=== PATIENT | male | born 1935 | race Two or more races ===

== ENCOUNTER 2017-11-12 13:19 | Outpatient (CLI) | payer MEDICARE, MEDICAID | END 2017-11-12 23:59 | disposition home health service (06) | LOC: WOU 13:19 | PROVIDERS: ATTEND Podiatrist Foot & Ankle Surgery | DX: E11.52 Type 2 diabetes mellitus with diabetic peripheral angiopathy with gangrene (principal); E11.42 Type 2 diabetes mellitus with diabetic polyneuropathy; I25.10 Atherosclerotic heart disease of native coronary artery without angina pectoris; Z98.61 Coronary angioplasty status; Z95.1 Presence of aortocoronary bypass graft; F17.211 Nicotine dependence, cigarettes, in remission; Z83.3 Family history of diabetes mellitus | CPT/HCPCS: 82962; G0463; A6402 ==

== ENCOUNTER 2017-11-23 08:20 | Outpatient (CLI) | payer MEDICARE, MEDICAID ==
[2017-12-03] MEDS ORDERED: ASCO500T9 PO (16:02)
[2017-12-03] MEDS ORDERED: MULT-24 PO (16:02)
== END 2017-11-23 23:59 | disposition home health service (06) ==
LOC: WOU 08:20
PROVIDERS: ATTEND Podiatrist Foot & Ankle Surgery
DX: E11.52 Type 2 diabetes mellitus with diabetic peripheral angiopathy with gangrene (principal); E11.621 Type 2 diabetes mellitus with foot ulcer; E11.42 Type 2 diabetes mellitus with diabetic polyneuropathy; I96 Gangrene, not elsewhere classified; L97.522 Non-pressure chronic ulcer of other part of left foot with fat layer exposed; I80.9 Phlebitis and thrombophlebitis of unspecified site; R60.0 Localized edema; Z87.01 Personal history of pneumonia (recurrent)
CPT/HCPCS: A6402; G0463

== ENCOUNTER 2017-11-24 13:00 | Outpatient (CLI) | payer MEDICARE, MEDICAID | END 2017-11-24 23:59 | disposition home health service (06) | LOC: WOU 13:00 | PROVIDERS: ATTEND Specialist | DX: Z01.818 Encounter for other preprocedural examination (principal); E11.52 Type 2 diabetes mellitus with diabetic peripheral angiopathy with gangrene; E11.621 Type 2 diabetes mellitus with foot ulcer; L97.522 Non-pressure chronic ulcer of other part of left foot with fat layer exposed; Z87.891 Personal history of nicotine dependence; J44.9 Chronic obstructive pulmonary disease, unspecified; Z95.1 Presence of aortocoronary bypass graft; Z98.61 Coronary angioplasty status; Z79.4 Long term (current) use of insulin; Z79.899 Other long term (current) drug therapy; I50.9 Heart failure, unspecified; Z79.52 Long term (current) use of systemic steroids | CPT/HCPCS: A6402; G0463 ==

== ENCOUNTER 2017-11-30 12:00 | Outpatient (CLI) | payer MEDICARE, MEDICAID ==
[~2017-11-30 12:00] MED LIST: GABAPENTIN 300 MG CAPSULE PO ONE
[2017-11-30] MEDS ORDERED: BUDE10.2 INH (18:44)
[2017-11-30] MEDS ORDERED: METO25TA6 PO (18:44)
[2017-11-30] MEDS ORDERED: ATOR20TA PO (18:44)
[2017-11-30] MEDS ORDERED: INSU100I4 SQ (18:44)
[2017-11-30] MEDS ORDERED: INSU100I30 SQ (18:44)
[2017-11-30] MEDS ORDERED: NITR1PAT5 TD (18:44)
[2017-11-30] MEDS ORDERED: VITA1TAB20 PO (18:44)
[2017-11-30] MEDS ORDERED: ALBU2.5V13 IH (18:44)
[2017-11-30] MEDS ORDERED: DABI75CA3 PO (18:44)
[2017-11-30] MEDS ORDERED: PRED5TAB PO (18:44)
[2017-11-30] MEDS ORDERED: TAMS0.4C34 PO (18:44)
[2017-11-30] MEDS ORDERED: ASPI-1169 PO (18:44)
[2017-11-30] MEDS ORDERED: INSU100I24 SQ (18:44)
[2017-11-30] MEDS ORDERED: FURO40TA5 PO (18:44)
[2017-11-30] MEDS ORDERED: MONT10TA22 PO (18:44)
[2017-12-01] MEDS ORDERED: INSU100V11 SQ ×2 (19:34)
[2017-12-03] MEDS ORDERED: ASCO500T9 PO (16:02)
[2017-12-03] MEDS ORDERED: MULT-24 PO (16:02)
== END 2017-11-30 23:59 | disposition home health service (06) ==
LOC: WOU 12:00
PROVIDERS: ATTEND Specialist
DX: I96 Gangrene, not elsewhere classified (principal); E11.621 Type 2 diabetes mellitus with foot ulcer; E11.52 Type 2 diabetes mellitus with diabetic peripheral angiopathy with gangrene; L97.522 Non-pressure chronic ulcer of other part of left foot with fat layer exposed; L03.116 Cellulitis of left lower limb; I77.1 Stricture of artery; Z87.828 Personal history of other (healed) physical injury and trauma; Z79.4 Long term (current) use of insulin
CPT/HCPCS: A6402; G0463

== ENCOUNTER 2017-11-30 14:29 | Inpatient (IN) | payer MEDICARE, MEDICAID ==
[~2017-11-30] VITALS: Ht 165.1 cm; Wt 67.6 kg
--- NOTE | 2017-11-30 14:45 | NUR ---
MS/supervisor elementary education New admission from wound center with foot wounds. Partial orders wrote by Dr Toro and carried out. Patient fully admitted, dressings to both feet removed and pictures taken.
[2017-11-30 16:00] VITALS: BP 117/66
[2017-11-30] MEDS ORDERED: Z GUARD REMEDY 2 OZ OINT TP PRN (16:00)
[2017-11-30] MEDS ORDERED: ONDANSETRON HCL/PF 4 MG/2 ML VIAL IVP PRN (16:00)
[2017-11-30] MEDS ORDERED: MAG HYDROX/AL HYDROX/SIMETH 30 ML UDC PO PRN (16:00)
[2017-11-30] MEDS ORDERED: MAGNESIUM HYDROXIDE 30 ML UDC PO PRN (16:00)
--- NOTE | 2017-11-30 16:20 | NUR ---
MS/RN MRSA swab MRSA swab collected and sent to lab.
[2017-11-30] MEDS ORDERED: FEE PK DOSING 1 MIN EA MC ONE (17:39)
[2017-11-30] MEDS: HYDROCODONE/APAP 5/325MG 1 EACH TABLET PO PRN (17:47)
--- NOTE | 2017-11-30 18:15 | NUR ---
MS/RN S/B Dr Perez Seen by Dr Perez - admitting orders wrote and carried out.
[2017-11-30] MEDS: PIPERACILLIN /TAZOBACTAM 3.375 G in IV D5W 50 ML IV SCH ×2 (18:16→23:19)
[2017-11-30] MEDS ORDERED: METO25TA6 PO (18:44)
[2017-11-30] MEDS ORDERED: MONT10TA22 PO (18:44)
[2017-11-30] MEDS ORDERED: PRED5TAB PO (18:44)
[2017-11-30] MEDS ORDERED: TAMS0.4C34 PO (18:44)
[2017-11-30] MEDS ORDERED: VITA1TAB20 PO (18:44)
[2017-11-30] MEDS ORDERED: FURO40TA5 PO (18:44)
[2017-11-30] MEDS ORDERED: BUDE10.2 INH (18:44)
[2017-11-30] MEDS ORDERED: INSU100I24 SQ (18:44)
[2017-11-30] MEDS ORDERED: ATOR20TA PO (18:44)
[2017-11-30] MEDS ORDERED: ALBU2.5V13 IH (18:44)
[2017-11-30] MEDS ORDERED: DABI75CA3 PO (18:44)
[2017-11-30] MEDS ORDERED: INSU100I30 SQ (18:44)
[2017-11-30] MEDS ORDERED: ASPI-1169 PO (18:44)
[2017-11-30] MEDS ORDERED: INSU100I4 SQ (18:44)
[2017-11-30] MEDS ORDERED: NITR1PAT5 TD (18:44)
--- NOTE | 2017-11-30 18:53 | NUR ---
MS/RN Medications Home medications entered into computer by [facility] ? nurse.
[2017-11-30] MEDS ORDERED: VANCOMYCIN 1 GM in IV D5W 250 ML IV ONE (19:00)
--- NOTE | 2017-11-30 19:15 | NUR ---
RN OPENING NOTES PT AWAKE AND RESTING IN BED. NO COMPLAINTS OF PAIN AT THIS TIME. PT HAS RIGHT WRIST #20 IV, INTACT AND PATENT. NO COMPLAINTS OF SOB. SAFETY PRECAUTIONS IN PLACE, BED IN LOW LOCKED POSITION, X2 SIDE RAILS UP, AND CALL LIGHT WITHIN REACH. WILL CONTINUE TO MONITOR.
[2017-11-30 20:00] VITALS: BP 95/44
--- NOTE | 2017-11-30 20:30 | NUR ---
RN NOTES PT REQUESTED PRN TYLENOL 650MG FOR LEFT ANKLE PAIN, AND RIGHT TOE PAIN. WILL ADMINISTER AND CONTINUE TO MONITOR.
[2017-11-30] MEDS: ACETAMINOPHEN 325 MG TABLET PO PRN (20:34)
[2017-11-30] MEDS: ZOLPIDEM TARTRATE 5 MG TABLET PO PRN (23:19)
[2017-12-01] MEDS: PIPERACILLIN /TAZOBACTAM 3.375 G in IV D5W 50 ML IV SCH ×3 (05:35→17:46)
[2017-12-01] MEDS: HYDROCODONE/APAP 5/325MG 1 EACH TABLET PO PRN ×4 (05:35→18:39)
--- NOTE | 2017-12-01 06:37 | NUR ---
RN CLOSING NOTES PT RESTING IN BED. NO COMPLAINTS OF SOB AT THIS TIME. EXPLAINED TO THE PT THE IMPORTANCE OF PAIN MANAGEMENT. PT AWARE OF PRN MEDICATIONS AVAILABLE FOR PAIN. PT HAS A RIGHT WRIST #20 IV, INTACT AND PATENT. PT SLEPT WELL THROUGHOUT THE NIGHT. SAFETY PRECAUTIONS IN PLACE, BED IN LOW, LOCKED POSITION, X2 SIDE RAILS UP. CALL LIGHT WITHIN REACH, WILL ENDORSE TO DAY SHIFT NURSE FOR CONTINUITY OF CARE.
[2017-12-01 06:41] LABS: BASOPHILS % (AUTO) 0.2 % (0.0-2.0); EOSINOPHILS # (AUTO) 0.3 /CMM (0.0-0.7); EOSINOPHILS % (AUTO) 2.7 % (0.0-6.0); HEMATOCRIT 34 % (39-51); HEMOGLOBIN 11.7 g/dL (13.5-17.5); LYMPHOCYTES # (AUTO) 0.6 /CMM (0.8-4.8); MEAN CORPUSCULAR HEMOGLOBIN 29 PG (26.0-33.0); MEAN CORPUSCULAR HGB CONC 35 g/dl (31.0-36.0); MEAN CORPUSCULAR VOLUME 83 fL (80-96); MONOCYTES # (AUTO) 0.7 /CMM (0.1-1.30); MONOCYTES % (AUTO) 5.9 % (2.0-12.0); NEUTROPHILS # (AUTO) 10.1 /CMM (1.8-8.9); NEUTROPHILS % (AUTO) 86.2 % (43.0-81.0); PLATELET COUNT (AUTO) 243 /CMM (150-450); RED BLOOD CELL COUNT(AUTO) 4.04 MIL/uL (4.5-6.0); WHITE BLOOD COUNT (AUTO) 11.8 K/uL (4.3-11.0)
[2017-12-01 06:44] LABS: CHOLESTEROL 115 mg/dL (<200); HDL CHOLESTEROL 58 mg/dL (40-60); LDL 58 mg/dL (0-99); TRIGLYCERIDES 98 mg/dL (30-150)
[2017-12-01 07:02] LABS: CALCIUM, SERUM 8.6 mg/dL (8.5-10.1); CARBON DIOXIDE 30 mmol/L (21-32); CHLORIDE 103 mmol/L (98-107); CREATININE 1.4 mg/dL (0.6-1.3); GLUCOSE 114 mg/dL (74-106); PHOSPHORUS 3.3 mg/dL (2.5-4.9); POTASSIUM 3.6 mmol/L (3.5-5.1); SODIUM SERUM 141 mmol/L (136-145); UREA NITROGEN, BLOOD 23 mg/dL (7-18)
--- NOTE | 2017-12-01 07:30 | NUR ---
DR. CASAS IN AND WD CARE DONE TO BOTH FEET.HEP LOCK IN PLACE.
[2017-12-01 08:00] VITALS: BP 109/54
--- NOTE | 2017-12-01 09:32 | NUR ---
WOUND CARE CONSULT: PT PRESENTS WITH LEFT ARM SMALL SCAB AND BILATERAL TOES WITH DRY GANGRENE, PRESENT ON ADMISSION. PT EXAMINED BY PODIATRY TEAM. DEFER TO PODIATRY TEAM FOR LOWER EXTREMITIES. PT IS CONTINENT AND AMBULATORY. CURRENT NOLBERTO SCORE IS 17. WILL SEE PRN. DISCUSSED SKIN PROTECTION WITH NURSING STAFF. MD IN AGREEMENT WITH PLAN OF CARE.
--- NOTE | 2017-12-01 10:30 | NUR ---
DR. SCOTT IN AND ORDERS GIVEN.RN REQUESTING SLIDING SCALE BE ORDERED.NO ORDERS FOR SL SCALE.
[2017-12-01] MEDS: BLOOD SUGAR DIAGNOSTIC 1 EACH STRIP IN SCH ×3 (12:39→21:18)
[2017-12-01 16:00] VITALS: BP 114/54
[2017-12-01] MEDS: FLUTICASONE/VILANTEROL 1 EACH BLST.W.DEV IH SCH (16:55)
[2017-12-01] MEDS ORDERED: Medication Not On Formulary EA (Budesonide/Formoterol Fumarate (Symbicort 160-4.5 Mcg In INH SCH (17:00)
[2017-12-01] MEDS: METOPROLOL TARTRATE 25 MG TABLET PO SCH (17:00)
[2017-12-01] MEDS ORDERED: INSULIN DEGLUDEC 60 UNIT SQ SCH (17:00)
[2017-12-01] MEDS: DABIGATRAN ETEXILATE MESYLATE 75 MG CAPSULE PO SCH (17:40)
--- NOTE | 2017-12-01 18:30 | NUR ---
DR. SCOTT TEXTED SEVERAL TIMES REGARDING BGL,S.GIVEN ORDERS AND PHARMACIST ADDITIONALLY CALLED DR. SCOTT TO CLARIFY ORDERS.
--- NOTE | 2017-12-01 19:00 | NUR ---
MED X 3 WITH NORCO FOR LT. FOOT PAIN WITH GOOD RELIEF.
--- NOTE | 2017-12-01 19:05 | NUR ---
IV LEAKING AND ENDORSED TO JENNIFER RN TO RESTART.ZOSYN NOT YET COMPLETED AND STILL NEEDS VANCO.
--- NOTE | 2017-12-01 19:30 | NUR ---
RN NOTES RECEIVED PATIENT IN BED AWAKE, AO X 3, ABLE TO MAKE NEEDS KNOWN. NO ACUTE DISTRESS NOTED. DENIES ANY PAIN AT THIS TIME. NO SYMPTOMS OF HYPER/HYPOGLYCEMIA. NO IV SITE. WOUND DRESSINGS INTACT. SAFETY REMINDERS GIVEN. ON LOW BED WITH WITH BILATERAL UPPER SIDE RAILS UP. CALL CORTES WITHIN EASY REACH. WILL CONTINUE TO MONITOR.
[2017-12-01] MEDS ORDERED: INSU100V11 SQ ×2 (19:34)
[2017-12-01 20:00] VITALS: BP 123/73
[2017-12-01] MEDS ORDERED: DEXTROSE 50%-WATER 50 ML DISP.SYRIN IV PRN (20:00)
[2017-12-01] MEDS: VANCOMYCIN 1.25 GM in IV D5W 500 ML IV SCH (21:10)
[2017-12-01] MEDS: ZOLPIDEM TARTRATE 5 MG TABLET PO PRN (21:11)
[2017-12-01] MEDS: MONTELUKAST SODIUM (10MG) 10 MG TABLET PO SCH (21:11)
[2017-12-01] MEDS: TAMSULOSIN 0.4 MG CAP.SR.24H PO SCH (21:11)
[2017-12-01] MEDS: ATORVASTATIN 10 MG TABLET PO SCH (21:11)
[2017-12-01] MEDS: *INSULIN ASPART NOVOLOG 100 UNIT/ML CARTRIDGE SQ PRN (21:17)
[2017-12-02] MEDS: PIPERACILLIN /TAZOBACTAM 3.375 G in IV D5W 50 ML IV SCH ×4 (00:19→19:33)
--- NOTE | 2017-12-02 06:10 | NUR ---
RN NOTES NOTED AND CARRIED OUT NEW ORDER FROM DR. CONTRERAS TO CHANGE REGULAR DIET TO [facility].
--- NOTE | 2017-12-02 06:14 | NUR ---
RN NOTES PATIENT ASLEEP, EASILY AROUSABLE. RESPIRATIONS EVEN. NO SIGNS OF PAIN NOTED. DUE MEDS GIVEN WITH NO ASE NOTED. NEEDS ATTENDED. KEPT CLEAN AND DRY. SAFETY PRECAUTIONS AND COMFORT MEASURES IN PLACE. WILL GIVE REPORT TO DAY SHIFT FOR CONTINUITY OF CARE.
[2017-12-02] MEDS: BLOOD SUGAR DIAGNOSTIC 1 EACH STRIP IN SCH ×4 (06:39→21:15)
[2017-12-02] MEDS: INSULIN ASPART/LISPRO 100 UNIT/ML CARTRIDGE SQ PRN ×2 (06:41→17:47)
[2017-12-02] MEDS: ALBUTEROL FS 2.5 MG/0.5 ML VIAL.NEB IH SCH ×2 (07:21→22:39)
[2017-12-02] MEDS ORDERED: INSULIN ASPART/LISPRO 100 UNIT/ML CARTRIDGE SQ SCH (07:30)
--- NOTE | 2017-12-02 07:30 | NUR ---
RN OPENING NOTES RECEIVED PT. IN BED A&OX4. BREATHING UNLABORED, AND EVENLY ON ROOM AIR. NO S/S OF ACUTE DISTRESS. IV FLUIDS RUNNING TO KEEP VEIN OPEN. BOTH FEET AND ANKLES WRAPPED IN KERLIX. PT. HAD RIGHT FOOT WOUND CARE THIS MORNING WITH NEW DRESSING APPLIED. IS BED IS IN LOWEST, AND LOCKED POSITION, 2 SIDE RAILS UP, AND INSTRUCTED PT. TO USE CALL LIGHT FOR ASSISTANCE. ALL NEEDS MET. WILL CONTINUE TO ASSESS AND MONITOR.
[2017-12-02] MEDS: HYDROCODONE/APAP 5/325MG 1 EACH TABLET PO PRN ×2 (07:55→12:50)
[2017-12-02 07:58] LABS: CALCIUM, SERUM 8.4 mg/dL (8.5-10.1); CARBON DIOXIDE 28 mmol/L (21-32); CHLORIDE 100 mmol/L (98-107); CREATININE 1.3 mg/dL (0.6-1.3); GLUCOSE 227 mg/dL (74-106); POTASSIUM 3.9 mmol/L (3.5-5.1); SODIUM SERUM 135 mmol/L (136-145); UREA NITROGEN, BLOOD 16 mg/dL (7-18)
[2017-12-02 08:00] VITALS: BP 128/68
[2017-12-02] MEDS: ACETAMINOPHEN 325 MG TABLET PO PRN (08:11)
[2017-12-02] MEDS: NITROGLYCERIN PATCH 0.2 MG/HR PATCH.TD24 TD SCH (09:00)
[2017-12-02] MEDS: INSULIN GLARGINE, 100 UNIT/ML CARTRIDGE SQ SCH ×2 (09:00→11:37)
[2017-12-02] MEDS: METOPROLOL TARTRATE 25 MG TABLET PO SCH ×2 (09:00→17:28)
[2017-12-02] MEDS: VITAMIN B COMP W-C 1 TAB TABLET PO SCH (09:23)
[2017-12-02] MEDS: FUROSEMIDE 40 MG TABLET PO SCH (09:23)
[2017-12-02] MEDS: predniSONE 5 MG TABLET PO SCH (09:23)
[2017-12-02] MEDS: ASPIRIN 81 MG TAB.CHEW PO SCH (09:23)
[2017-12-02] MEDS: DABIGATRAN ETEXILATE MESYLATE 75 MG CAPSULE PO SCH ×2 (09:28→17:29)
[2017-12-02] MEDS: FLUTICASONE/VILANTEROL 1 EACH BLST.W.DEV IH SCH (09:29)
--- NOTE | 2017-12-02 09:43 | NUR ---
RN NOTES PT.'S BLOOD SUGAR WAS 136 MG/DL. WILL HOLD 60 UNITS OF LANTUS AND DISCUSS WITH .
--- NOTE | 2017-12-02 11:41 | NUR ---
RN NOTES DISCUSSED WITH MD ABOUT PT.'S BLOOD SUGAR, AND LANTUS DOSE. PER MD OKAY TO ADMINISTER 60 UNITS OF LANTUS.
[2017-12-02 12:30] LABS: BASOPHILS % (AUTO) 0.2 % (0.0-2.0); EOSINOPHILS # (AUTO) 0.2 /CMM (0.0-0.7); EOSINOPHILS % (AUTO) 1.8 % (0.0-6.0); HEMATOCRIT 32 % (39-51); HEMOGLOBIN 10.9 g/dL (13.5-17.5); LYMPHOCYTES # (AUTO) 0.5 /CMM (0.8-4.8); LYMPHOCYTES % (AUTO) 3.9 % (20.0-44.0); MEAN CORPUSCULAR HEMOGLOBIN 29 PG (26.0-33.0); MEAN CORPUSCULAR HGB CONC 35 g/dl (31.0-36.0); MEAN CORPUSCULAR VOLUME 83 fL (80-96); MONOCYTES # (AUTO) 0.4 /CMM (0.1-1.30); MONOCYTES % (AUTO) 3.5 % (2.0-12.0); NEUTROPHILS # (AUTO) 10.4 /CMM (1.8-8.9); NEUTROPHILS % (AUTO) 90.6 % (43.0-81.0); PLATELET COUNT (AUTO) 213 /CMM (150-450); RED BLOOD CELL COUNT(AUTO) 3.78 MIL/uL (4.5-6.0); WHITE BLOOD COUNT (AUTO) 11.5 K/uL (4.3-11.0)
[2017-12-02] MEDS: *INSULIN ASPART NOVOLOG 100 UNIT/ML CARTRIDGE SQ PRN ×2 (12:36→21:35)
[2017-12-02 16:21] VITALS: BP 116/81
[2017-12-02] MEDS: LACTOBACILLUS RHAMNOSUS GG 1 EACH CAP.SPRINK PO SCH (17:27)
[2017-12-02] MEDS: VANCOMYCIN 1.25 GM in IV D5W 500 ML IV SCH (17:40)
--- NOTE | 2017-12-02 19:20 | NUR ---
RN CLOSING NOTES PT. IN BED A&OX4. BREATHING UNLABORED, AND EVENLY ON ROOM AIR. NO S/S OF ACUTE DISTRESS. IV FLUIDS RUNNING ON RIGHT HAND. BOTH FEET AND ANKLES WRAPPED IN KERLIX. BED IS IN LOWEST, AND LOCKED POSITION, 2 SIDE RAILS UP, AND INSTRUCTED PT. TO USE CALL LIGHT FOR ASSISTANCE. ALL NEEDS MET. WILL ENDORSE REPORT TO NURSE.
[2017-12-02 20:00] VITALS: BP 130/65
[2017-12-02] MEDS ORDERED: CEFTRIAXONE 1 G in IV D5W 50 ML IV SCH (21:00)
[2017-12-02] MEDS: TAMSULOSIN 0.4 MG CAP.SR.24H PO SCH (21:15)
[2017-12-02] MEDS: ATORVASTATIN 10 MG TABLET PO SCH (21:15)
[2017-12-02] MEDS: MONTELUKAST SODIUM (10MG) 10 MG TABLET PO SCH (21:15)
[2017-12-03] MEDS: HYDROCODONE/APAP 5/325MG 1 EACH TABLET PO PRN ×3 (06:07→17:23)
[2017-12-03] MEDS: BLOOD SUGAR DIAGNOSTIC 1 EACH STRIP IN SCH ×3 (06:07→17:24)
--- NOTE | 2017-12-03 06:35 | NUR ---
MS RN NOTES AWAKE & RESPONSIVE. NOT IN ANY DISTRESS. NO SOB NOTED. DENIES ANY PAIN OR DISCOMFORT AT THIS TIME. MONITORED ACCORDINGLY. CALL LIGHT WITHIN REACH. BED IN LOWEST POSITION. SR UP X 2 FOR SAFETY. WILL ENDORSE TO NEXT SHIFT.
[2017-12-03 07:59] LABS: BASOPHILS % (AUTO) 0.1 % (0.0-2.0); EOSINOPHILS # (AUTO) 0.2 /CMM (0.0-0.7); EOSINOPHILS % (AUTO) 2.4 % (0.0-6.0); HEMATOCRIT 35 % (39-51); HEMOGLOBIN 12.2 g/dL (13.5-17.5); LYMPHOCYTES # (AUTO) 0.7 /CMM (0.8-4.8); LYMPHOCYTES % (AUTO) 7.4 % (20.0-44.0); MEAN CORPUSCULAR HEMOGLOBIN 29 PG (26.0-33.0); MEAN CORPUSCULAR HGB CONC 35 g/dl (31.0-36.0); MEAN CORPUSCULAR VOLUME 83 fL (80-96); MONOCYTES # (AUTO) 0.6 /CMM (0.1-1.30); MONOCYTES % (AUTO) 5.5 % (2.0-12.0); NEUTROPHILS # (AUTO) 8.5 /CMM (1.8-8.9); NEUTROPHILS % (AUTO) 84.6 % (43.0-81.0); PLATELET COUNT (AUTO) 228 /CMM (150-450); RDW COEFFICIENT OF VARIATION 18.7 (11.5-15.0); RED BLOOD CELL COUNT(AUTO) 4.21 MIL/uL (4.5-6.0)
[2017-12-03 08:00] VITALS: BP 134/64
--- NOTE | 2017-12-03 08:00 | NUR ---
wound water supply engineer: initial assessment received pt in bed awake, a/ox4. honey foot dressing in place, clean, and dry. instructed to call for assistance. no apparent distress noted. will continue to monitor.
[2017-12-03 08:14] LABS: CALCIUM, SERUM 8.6 mg/dL (8.5-10.1); CARBON DIOXIDE 29 mmol/L (21-32); CHLORIDE 98 mmol/L (98-107); CREATININE 1.3 mg/dL (0.6-1.3); GLUCOSE 109 mg/dL (74-106); POTASSIUM 3.6 mmol/L (3.5-5.1); SODIUM SERUM 135 mmol/L (136-145); UREA NITROGEN, BLOOD 16 mg/dL (7-18)
[2017-12-03] MEDS: ALBUTEROL FS 2.5 MG/0.5 ML VIAL.NEB IH SCH (08:37)
[2017-12-03] MEDS: FLUTICASONE/VILANTEROL 1 EACH BLST.W.DEV IH SCH (08:44)
[2017-12-03] MEDS: FUROSEMIDE 40 MG TABLET PO SCH (08:45)
[2017-12-03] MEDS: ASPIRIN 81 MG TAB.CHEW PO SCH (08:45)
[2017-12-03] MEDS: VITAMIN B COMP W-C 1 TAB TABLET PO SCH (08:47)
[2017-12-03] MEDS: LACTOBACILLUS RHAMNOSUS GG 1 EACH CAP.SPRINK PO SCH ×2 (08:48→17:24)
[2017-12-03] MEDS: METOPROLOL TARTRATE 25 MG TABLET PO SCH ×2 (08:48→17:24)
[2017-12-03] MEDS: predniSONE 5 MG TABLET PO SCH (08:48)
[2017-12-03] MEDS: INSULIN GLARGINE, 100 UNIT/ML CARTRIDGE SQ SCH (08:57)
[2017-12-03] MEDS: DABIGATRAN ETEXILATE MESYLATE 75 MG CAPSULE PO SCH ×2 (08:57→17:27)
[2017-12-03] MEDS ORDERED: BOOST GLUCOSE CONTROL VANILLA 237 ML BOX PO SCH (09:00)
[2017-12-03] MEDS ORDERED: ASCORBIC ACID 500 MG TABLET PO SCH (09:00)
[2017-12-03] MEDS ORDERED: MULTIVITAMINS,THERAGRAN 1 UDTAB TABLET PO SCH (09:00)
[2017-12-03] MEDS: ACETAMINOPHEN 325 MG TABLET PO PRN (09:06)
--- NOTE | 2017-12-03 09:22 | NUR ---
wound aircraft dispatcher: notes c/o 05/17 left toe pain, medicated with norco 2 tabs po as ordered. instructed to call for assistance. will continue to monitor.
--- NOTE | 2017-12-03 10:52 | NUR ---
wound automotive project engineer: notes pt with eyes close at this time. no s/s of discomfort. call light within reach. will monitor.
[2017-12-03] MEDS: NITROGLYCERIN PATCH 0.2 MG/HR PATCH.TD24 TD SCH (11:55)
[2017-12-03] MEDS: INSULIN ASPART/LISPRO 100 UNIT/ML CARTRIDGE SQ PRN (12:00)
[2017-12-03 16:00] VITALS: BP 103/59
[2017-12-03] MEDS ORDERED: ASCO500T9 PO (16:02)
[2017-12-03] MEDS ORDERED: MULT-24 PO (16:02)
--- NOTE | 2017-12-03 16:15 | NUR ---
wound machine stonecutter: notes received new order to to d'c pt to snf with instructions: 1)f/u with SNF PCP, 2)f/u with Wound surgeon as scheduled, 3)f/u with wound care. pt aware and will call his friend to picker box operator his car here as stated. no need to call someone as pt stated. eta at 1900 per case management and pt aware.
--- NOTE | 2017-12-03 16:40 | NUR ---
m/s prop attendant: notes [facility] snf notified, spoke to [facility] and report given for continuity of care.
--- NOTE | 2017-12-03 17:00 | NUR ---
m/s examining officer: d'c instructions discharged instructions given and copy provided to pt. pt verbalized understanding. all belongings/valuables/meds returned to pt. eta at 1900. instructed to call for assistance. pt doesn't have any next of kin to be contacted. pt again will call his friend to tack picker his car here and his keys to be picked up at [facility] by a friend as stated.
[2017-12-03] MEDS: VANCOMYCIN 1.25 GM in IV D5W 500 ML IV SCH (18:00)
--- NOTE | 2017-12-03 18:00 | NUR ---
wound double end production grinder: notes pt for d'c to snf and vanco not to be continued at snf per and jennifer (pharmacist) made aware. vanco not given. pt aware. will continue to monitor.
--- NOTE | 2017-12-03 18:23 | NUR ---
wound rn circulating: notes resting comfortable in bed, awaiting for ambulance to pick him up. needs attended. call light within reach. will continue to monitor.
--- NOTE | 2017-12-03 19:25 | NUR ---
wound marketing writer: notes still awaiting for ambulance to order picker/assembler pt. report given to logan (rn) for continuity of care and endorse to remove h/l once order picker/assembler is here. will continue to monitor.
--- NOTE | 2017-12-03 19:30 | NUR ---
MSRN FULLY AWAKE, FOR DISCHARGE TODAY. AWAITING FOR AMBULANCE. DENIES ANY DISCOMFORTS
--- NOTE | 2017-12-03 19:45 | NUR ---
MSRN REPORT GIVEN TO AMBULANCE STAFF. HEPLOCK TAKEN OUT AND ARMBAND TAKEN OUT. HOME MEDS WITH PATIENT. V/S STABLE, NO NEEDS MADE. WILL BE DISCHARGE IN STABLE CONDITION.
--- NOTE | 2017-12-03 19:55 | NUR ---
MSRN DISCHARGED VIA AMBULANCE WITH ALL PERSONAL BELONGINGS IN SATISFACTORY CONDITION.
== END 2017-12-03 19:55 | DRG 299 ==
LOC: WOUND3 14:29
PROVIDERS: ADMIT Podiatrist Foot & Ankle Surgery; ATTEND Family Medicine
DX: E11.52 Type 2 diabetes mellitus with diabetic peripheral angiopathy with gangrene (principal); N17.0 Acute kidney failure with tubular necrosis; I96 Gangrene, not elsewhere classified; E11.22 Type 2 diabetes mellitus with diabetic chronic kidney disease; I50.9 Heart failure, unspecified; L03.115 Cellulitis of right lower limb; J44.9 Chronic obstructive pulmonary disease, unspecified; L03.116 Cellulitis of left lower limb; S81.801A Unspecified open wound, right lower leg, initial encounter; D72.829 Elevated white blood cell count, unspecified; S81.802A Unspecified open wound, left lower leg, initial encounter; X58.XXXA Exposure to other specified factors, initial encounter; Y93.9 Activity, unspecified; Y92.009 Unspecified place in unspecified non-institutional (private) residence as the place of occurrence of the external cause; Z95.5 Presence of coronary angioplasty implant and graft; Z87.891 Personal history of nicotine dependence; N18.9 Chronic kidney disease, unspecified; I25.10 Atherosclerotic heart disease of native coronary artery without angina pectoris; Z95.1 Presence of aortocoronary bypass graft; Z79.4 Long term (current) use of insulin
CPT/HCPCS: 36415; 73610-TC; 80048-TC; 80061-TC; 80202-TC; 82962-TC; 83735-TC; 84100-TC; 85025-TC; 85652-TC; 86140-TC; 87081-TC; A6403; J0696; J1815; J2543; J3370; J7050; J7060; J7512; Z7610